=== PATIENT | male | born 1980 | race Caucasian/White ===

== ENCOUNTER → 2017-08-31 | Outpatient (CLI) | payer OTHER ==
--- NOTE | 2017-08-31 16:54 | DIAGNOSTIC IMAGING REPORT ---
NECK ULTRASOUND HISTORY: LOCALIZED SWELLING, MASS AND LUMP NECK COMPARISON: None. FINDINGS: Real-time sonographic imaging of the right neck was performed. There is a circumscribed oval-shaped 2.7 x 1.3 x 2.1 cm subdermal lesion within the right posterior lateral neck. This does not demonstrate significant color flow and favors a sebaceous cyst. IMPRESSION: A 2.7 x 1.3 x 2.1 cm indeterminate subdermal lesion with a right posterior lateral neck which favors a sebaceous cyst. Clinical follow-up is recommended to ensure resolution and/or fine-needle aspiration in pathology should be considered for further evaluation. Electronically signed by: [place] M.D. 08/31/2017 4:53 PM Dictated Date/Time: 08/31/2017 4:51 PM
== END | disposition home or self-care (01) ==
LOC: C.ULTR 15:44
PROVIDERS: ATTEND Family Medicine
DX: R22.1 Localized swelling, mass and lump, neck (principal)

== ENCOUNTER → 2017-09-24 | Outpatient (CLI) | payer OTHER | END | disposition home or self-care (01) | LOC: C.PATHSPEC 17:49 | PROVIDERS: ATTEND Surgery | DX: L72.0 Epidermal cyst (principal) ==